=== PATIENT | female | born 1960 | race Two or more races ===

== ENCOUNTER 2018-02-27 19:07 | Emergency (ER) | payer OTHER ==
[~2018-02-27] VITALS: Ht 160 cm; Wt 83.1 kg
[~2018-02-27 19:07] MED LIST: HTN MED
[2018-02-27 19:23] VITALS: BP 174/89
== END 2018-02-27 22:20 | disposition home or self-care (01) ==
LOC: ED 21:09
DX: S16.1XXA Strain of muscle, fascia and tendon at neck level, initial encounter (principal); G89.11 Acute pain due to trauma; M54.5 Low back pain; I10 Essential (primary) hypertension; R51 Headache; V89.2XXA Person injured in unspecified motor-vehicle accident, traffic, initial encounter; Y93.89 Activity, other specified; Y99.8 Other external cause status; Y92.410 Unspecified street and highway as the place of occurrence of the external cause
CPT/HCPCS: 70450; 72110; 72125; 99284